=== PATIENT | female | born 1995 | race Two or more races ===

== ENCOUNTER 2023-09-06 11:54 | Emergency (ER) | payer OTHER ==
[~2023-09-06] VITALS: Ht 165.1 cm; Wt 49.9 kg
[2023-09-06 13:00] LABS: HEMATOCRIT 39.2 % (36.0-45.00); HEMOGLOBIN 13.6 g/dL (12.0-15.00); MEAN CELL VOLUME 94.3 fL (80.00-100.00); MEAN CORPUSCULAR HEMOGLOBIN 32.6 pg (27.00-32.0); MEAN CORPUSCULAR HGB CONC 34.6 g/dl (32.0-36.0); PLATELET COUNT 199 K/uL (150-450); RED BLOOD COUNT 4.16 M/uL (4.00-6.00); RED CELL DISTRIBUTION WIDTH 13.9 % (11.5-14.5)
[2023-09-06 13:40] LABS: CALCIUM 9.1 mg/dL (8.5-10.1); CREATININE SERUM 0.56 mg/dL (0.55-1.02); GFR 127.99; POTASSIUM 3.13 mEq/L (3.5-5.1)
== END 2023-09-06 14:33 | disposition home or self-care (01) ==
LOC: ER 11:54
PROVIDERS: General Practice
DX: F41.9 Anxiety disorder, unspecified (principal); R63.0 Anorexia